=== PATIENT | male | born 1960 | race Caucasian/White ===

== ENCOUNTER 2023-12-08 10:11 | Outpatient (CLI) | payer BC, SELFPAY ==
--- NOTE | ~2023-12-08 | CT_ITS ---
EXAMINATION: CT lung screening DATE: 12/08/2023 10:22 INDICATION: NICOTINE DEPENDENCE TECHNIQUE: Computed tomography (CT) of the chest was performed without intravenous contrast. Addition al 3D reconstructions utilizing coronal maximum intensity projection (MIP) were performed. Automated exposure control and iterative reconstruction technique were employed. The dose-length product was 51 .65 mGy-cm. COMPARISON: None FINDINGS: Mild emphysema. Couple small calcified nodules at the bilateral lower lobes consistent with old granu lomatous disease. There are a few additional <3 mm noncalcified nodules in the right upper lobe. No p neumonia, pulmonary edema or pleural effusion. Heart size normal. No pericardial effusion. Atheroscle rotic coronary artery calcific location. Thoracic aorta is normal in caliber. No pathologically enlar ged thoracic lymphadenopathy. Mild bilateral gynecomastia. Cholecystectomy clips the gallbladder sen a. Mild thoracic spondylosis. IMPRESSION: 1. Lung-RADS category 2: Benign appearance or behavior. Continue annual screening with noncontrast lo w-dose chest CT in 12 months. Reviewed, dictated and finalized at location A. IMPRESSION: 1. Lung-RADS category 2: Benign appearance or behavior. Continue annual screeni ng with noncontrast low-dose chest CT in 12 months.
== END 2023-12-08 10:12 ==
PROVIDERS: PCP Student in an Organized Health Care Education/Training Program; Visit Provider Internal Medicine
DX: Z12.2 Encounter for screening for malignant neoplasm of respiratory organs (principal); F17.210 Nicotine dependence, cigarettes, uncomplicated
CPT/HCPCS: 71271

== ENCOUNTER 2025-02-28 09:29 | Outpatient (CLI) | payer BC, SELFPAY ==
--- NOTE | ~2025-02-28 | CT_ITS ---
EXAMINATION:CT lung screening DATE: 02/28/2025 09:44 INDICATION: Screening TECHNIQUE: Computed tomography (CT) of the chest was performed without intravenous contrast. The dose-length product (DLP) was 53.08 mGy-cm. COMPARISON: None. FINDINGS: 1.1 x 1.1 cm cystic formation in the right apical region image 27 series 4 is new. Overall benign features although the posterior margin has slightly nodular appearance. The remaining lung mendez are stable. Mediastinal structures bony structures and visualized portions of the upper abdomen and extra thoracic soft tissues also stable. IMPRESSION: 1. Mildly complex 1.1 cm air cyst formation with mural nodular changes. LUNG RADS 3: Recommend follow-up chest CT in 6 months or sooner if clinically appropriate. Reviewed, dictated and finalized at location A. CTOR OF DIETARY IMPRESSION: 1. Mildly complex 1.1 cm air cyst formation with mural nodular changes. LUNG RADS 3: Recommend follow-up chest CT in 6 months or sooner if clinically a ppropriate.
== END 2025-02-28 09:30 | disposition home or self-care (01) ==
LOC: MICIMG 09:31
PROVIDERS: PCP Student in an Organized Health Care Education/Training Program; Visit Provider Student in an Organized Health Care Education/Training Program
DX: Z12.2 Encounter for screening for malignant neoplasm of respiratory organs (principal); Z87.891 Personal history of nicotine dependence
CPT/HCPCS: 71271